=== PATIENT | male | born 1980 ===

== ENCOUNTER 2022-02-28 13:30 | Outpatient (CLI) | payer OTHER ==
--- NOTE | 2022-02-28 15:00 | SLEEP CARE CONSULTATION ---
Information from patient questionnaire entered by Giovanna Casey MA. I have reviewed and concur with the information entered by Giovanna Casey MA. This document represents the service I personally performed and the decisions made by me, Grace Zimmerman ARNP. History of Present Illness Service Date and Time: 02/28/2022 1330 Reason for Visit: New patient (ONSET 11/2011, NO PRIOR STUDIES, ) Chief Complaint: reports: Snoring, Fatigue, Frequent awakenings at night Date of Onset: 5 YEARS Usual bedtime: 9 PM Time it takes to fall asleep: 30 MINUTES Snores at night: Yes Observed to quit breathing while asleep: No Sleeps alone due to snoring: No Number of times waking at night: 5 Reasons for waking at night: reports: Choking (occasionally feels like choking when on back), Snoring, Pain. denies: Gasping for air Toss, Turn, or Twitch while sleeping: Yes Recalls having dreams: Yes Usually gets out of bed at: 0500 Feels refreshed in the morning: No Morning headache: Yes (3-4 days a week; last couple hours) Sleepy or fatigued during the day: Yes (will nod off at computer; has to get up to wake himself up sometimes) Ever fallen asleep while driving: No Takes day naps: No Dreams during day naps: No Prior sleep studies: No Type of Sleep Study: Polysomnography Additional HPI information: I had the pleasure of seeing KELLEY WYNN today regarding the possibility of him having a sleep disorder. His current complaints are fatigue, snoring and frequent awakenings at night. He saw his PCP about his high blood pressure and they talked about his sleeping habits. He states he snores and his will elbow him during the night to get him to change positions to reduce snores. He snores more on his back than his side. His has not seen him have any pauses in breathing. He does wake up with headaches 3-4 times a week but he states he has a lot of sinus issues that he is not exactly sure what is causing them. He is seeing an ENT specialist tomorrow for his sinus and ear problems. - Parasomnia Symptoms Ever been unable to move upon waking from sleep: No Walks in sleep: No (when younger, not as adult) Talks in sleep: Yes (not common) Ever acted out dreams in sleep: No Ever felt weak in the knees when startled or emotional: No Bothered by creepy, crawly, restless sensations in legs: No Problems with memory or concentration: Yes (both) Subjective Initial [place] Sleepiness Scale score: 9 (03/17) Past Medical History Past Medical History: reports: Hypertension Social History The patient's occupation is a [employer]. Patient is and lives in . Have you smoked in the past 12 months: No Alcohol use: Yes Alcohol amount and frequency: 8 X YEARLY Caffeine use: Yes Caffeine amount and frequency: 1 X DAILY Family History Family history of sleep disordered breathing: No Allergies and Home Medications Drug allergies reviewed: Yes (NKDA) Home medication list reviewed: Yes Allergy and home medication list: Zyrtec Flonase Review of Systems Cardiovascular: reports: high blood pressure Respiratory: reports: shortness of breath Gastrointestinal: denies: heartburn Neurological: reports: gait or balance problems. denies: head trauma Psychiatric: denies: anxiety, depression Ear/Nose/Throat: reports: wisdom teeth removed. denies: injury to nose, tonsillectomy Immunologic: reports: allergies to food or environment Physical Exam Vital signs obtained and entered by: MARYA CEJA Blood Pressure: 137/70 (RIGHT, PULSE 98, RESP 16, ) Heart Rate: 96 O2 Saturation: 98 Height: 6 ft 2 in Weight: 270 lb (W/O CLOTHES) Body Mass Index: 34.7 BMI Classification: Obese Neck circumference: 18.5 (INCH) Mouth and throat: normal Soft palate: long Hard palate: normal Uvula: normal Uvula visualization: 100% Mallampati Class I Tongue: normal in size Tonsils: 2+ Neck: normal w/o lymphadenopathy or thyromegaly Heart: regular rate and rhythm Lungs: clear bilaterally Impression and Plan 1. Suspected Obstructive Sleep Apnea-Hypopnea Syndrome, as suggested by a history of loud and irregular snoring, gasping or choking in sleep, morning headache, frequent awakening during the night, unrefreshed sleep, cognitive impairment, and excessive daytime sleepiness. Narrow oropharynx and obesity are common predisposing factors for obstructive sleep apnea-hypopnea syndrome. I recommend proceeding to polysomnography to confirm the diagnosis and to assess severity. If the patient has significant sleep disordered breathing, a manual CPAP titration study will also be performed to find the optimal treatment pressure. I informed the patient of what the sleep studies involve and after some discussion, obtained agreement to proceed. The pathophysiology of obstructive sleep apnea-hypopnea syndrome was discussed with the patient and health risks of cardiovascular and cerebrovascular disease if not treated. Risks of drowsy driving discussed in detail and patient advised to avoid long distance driving and to lumber puller at the first sign of drowsiness. Patient agreed to plan. * Schedule polysomnography +- manual CPAP titration study and return in 1-2 weeks after the study to discuss results. * Avoid long distance driving or driving when feeling sleepy. * Avoid alcohol, sedative and muscle relaxant around bedtime. * Attempt to lose weight. * Review instructions provided by trained office staff on how to prepare for the sleep study. * Return for follow-up after sleep study completed. Counseling Topics: Weight loss health impact Visit Type: In Office Time Spent with Patient (minutes): 30 Provider Statement: I spent 100% of the Face to Face Visit with the patient with greater than 50% spent counseling the patient and coordination of care.
[2022-02-28 15:01] VITALS: BP 137/70
== END 2022-02-28 13:31 | disposition home or self-care (01) ==
LOC: SC 13:30 → EDBD 14:20
PROVIDERS: ATTEND Nurse Practitioner Family
DX: R06.83 Snoring (principal); G47.8 Other sleep disorders; R51.9 Headache, unspecified; G47.10 Hypersomnia, unspecified; I10 Essential (primary) hypertension; E66.9 Obesity, unspecified; Z68.34 Body mass index [BMI] 34.0-34.9, adult
CPT/HCPCS: 99203; 99212

== ENCOUNTER 2022-04-05 12:21 | Outpatient (CLI) | payer OTHER | END 2022-04-05 12:22 | disposition home or self-care (01) | LOC: SC 12:21 | PROVIDERS: ATTEND Nurse Practitioner Family | DX: G47.33 Obstructive sleep apnea (adult) (pediatric) (principal); R09.02 Hypoxemia | CPT/HCPCS: 95806 ==

== ENCOUNTER 2022-04-26 09:48 | Outpatient (CLI) | payer OTHER ==
[2022-04-26 10:38] VITALS: BP 126/78
--- NOTE | 2022-04-26 10:38 | SLEEP CARE CONSULTATION ---
Information from patient questionnaire entered by Giovanna Su MA. I have reviewed and concur with the information entered by Giovanna Su MA. This document represents the service I personally performed and the decisions made by , Grace Zimmerman ARNP. History of Present Illness Service Date and Time: 04/26/2022 0948 Initial Levels Sleepiness Scale score: 9 (03/17) Current Levels Sleepiness Scale score: 15 (03/2022) Additional HPI information: KELLEY WYNN returns for follow up and results of the recently performed home sleep study. I explained the pathophysiology behind obstructive sleep apnea. We then spent quite a bit of time discussing different treatment options. For mild obstructive sleep apnea, surgery and oral appliance are alternatives to nasal CPAP therapy but in moderate or severe cases, nasal CPAP is the most effective and reliable treatment. Because apnea is primarily in supine position, then positional management therapy could be effective. Methods discussed such as positioning with pillows to prevent supine sleep. I reviewed the impact of weight changes on sleep apnea and strongly recommended losing weight. After some discussion, the patient opted to go with the nasal CPAP therapy. Nasal autoCPAP set at 4-15 cmH20 will be ordered with rationale explained. A manual titration study will be ordered if unable to find optimal pressure with office adjustments. I explained how CPAP machine works and what to expect when using the machine. Using CPAP every night in order to get used to it was emphasized. Patient advised to put CPAP mask on before getting into bed so as not to fall asleep without CPAP. To assist acclimation to CPAP use, it could also be used for a short time during day while reading or watching TV. The patient was instructed to call the CPAP supplier to discuss any mechanical problem that may occur. If the mask given is uncomfortable or is difficult to keep on through the night even with adjustment, contact the CPAP supplier as many will replace with another mask style if notified before 30 days. If snoring or perceives is not getting enough air or too much air from the machine, notify this office. Patient counseled not drink alcohol less than 4 hours before bedtime as it can increase snoring and apnea. Patient was cautioned about risks of drowsy driving until sleepiness symptoms resolve. Sleep Study - Results Type of Sleep Study: Home sleep study (F/U HOMESTUDY, 04/05/2022 [facility] Prior sleep studies: No Polysomnography/Home Sleep Study results: Physician Impression: The quality of the study is good. The length of the study is adequate (> 240 minutes). Please also see the tabulated and graphic data. 1. Obstructive Sleep Apnea-Hypopnea (ICD-10 G47.33), severe, with an AHI of 37.1/hr and marcelle SaO2 of 84%. During the study, the patient had 128 apneas (128 obstructive, 0 central, 0 mixed) and 120 hypopneas. The longest episode lasted 101.5 seconds. The respiratory events occurred almost exclusively during supine sleep (supine AHI was 76.4 and non-supine, 4.64). 2. Hypoxemia (ICD-10 R09.02), mild, with the lowest oxygen saturation of 84 % and 5.9 minutes with SaO2 under 90%. Baseline oxygen saturation was normal (Average oxygen saturation was 95%). Allergies and Home Medications Known drug allergies: No Drug allergies reviewed: Yes Home medication list reviewed: Yes (no changes) Review of Systems Review of systems same as previous: Yes (no changes) Physical Exam Vital signs obtained and entered by: Junior SU CMA AAELISSA Blood Pressure: 126/78 (RESP 16, PULSE 93, RIGHT,) Cuff size: wrist Heart Rate: 91 O2 Saturation: 98 (PAPER MASK) Height: 6 ft 2 in Weight: 270 lb Weight change since last visit: DIETING, EXCERCISING, NO CARBS, Body Mass Index: 34.7 BMI Classification: Obese Impression and Plan 1. Obstructive Sleep Apnea-Hypopnea Syndrome, severe, with lowest oxygen saturation of 84%. Obviously this is the cause of the patients symptoms of unrefreshed sleep, and excessive daytime sleepiness. Positive pressure therapy could benefit his hypertension. As mentioned above, the patient will be started on nasal autoCPAP therapy with pressure set at 4-15 cmH2O. A manual titration study will be completed if unable to find optimal treatment pressure with office adjustments. Compliance guidelines also reviewed. A copy of compliance guidelines will be given for reference at check out. Because the apnea is more severe supine, I instructed to avoid sleeping supine using pillow positioning until able to start CPAP use. 2. Hypoxemia, mild, with the lowest oxygen saturation of 84 % and 5.9 minutes with SaO2 under 90%. His baseline oxygen saturation was normal with an average oxygen saturation of 95%. * Nasal auto CPAP therapy, pressure at 4-15 cm H2O. * Attempt to lose weight. * Avoid alcohol consumption near bedtime. * Avoid supine sleep until using CPAP. * The patient is again cautioned about driving until sleepiness completely resolves. * Return one month after CPAP obtained. I will assess response to therapy and compliance at that time. Counseling Topics: Weight loss health impact Visit Type: In Office Time Spent with Patient (minutes): 20 Provider Statement: I spent 100% of the Face to Face Visit with the patient with greater than 50% spent counseling the patient and coordination of care.
== END 2022-04-26 09:49 | disposition home or self-care (01) ==
LOC: SC 09:48
PROVIDERS: ATTEND Nurse Practitioner Family
DX: G47.33 Obstructive sleep apnea (adult) (pediatric) (principal); R09.02 Hypoxemia; E66.9 Obesity, unspecified; Z68.34 Body mass index [BMI] 34.0-34.9, adult
CPT/HCPCS: 99212; 99213